=== PATIENT | male | born 1970 | race Caucasian/White ===

== ENCOUNTER 2019-03-31 09:16 | Emergency (ER) | payer OTHER ==
[~2019-03-31] VITALS: Ht 185.4 cm; Wt 102.1 kg
[2019-03-31] MEDS ORDERED: HEARTBURN RELI150 M1 PO (09:24)
[2019-03-31 09:43] LABS: ABSOLUTE EOSINOPHILS 0.1 thou/uL (0.0-0.7); ABSOLUTE LYMPHOCYTES 1.6 thou/uL (0.8-5.3); ABSOLUTE MONOCYTES 0.6 thou/uL (0.0-1.2); ABSOLUTE NEUTROPHILS 3.4 thou/uL (1.6-8.1); BASOPHILS 0.7 %; EOSINOPHILS 1.4 %; HEMATOCRIT 44.5 % (42.0-52.0); HEMOGLOBIN 15.7 gm/dL (14.0-18.0); LYMPHOCYTES 27.6 %; MCH 32.1 pg (26.0-34.0); MCHC 35.4 g/dL (28.0-37.0); MCV 90.7 fL (80.0-100.0); MONOCYTES 10.1 %; MPV 9.6 fl. (7.2-11.1); NUCLEATED RBCS 0 /100WBC; PLATELET COUNT* 199 thou/uL (150-400); POLYS 60.2 %; RBC 4.91 mil/uL (4.50-6.00); RDW-CV 12.2 % (10.5-14.5); WBC 5.7 thou/uL (4.0-11.0)
[2019-03-31 09:55] LABS: APTT 27.6 Seconds (25.0-31.3); INR 1.1; PROTIME 11.7 Seconds (9.20-11.50)
[2019-03-31] MEDS ORDERED: DOXYCYCLINE 10100 M2 PO ×2 (10:21)
[2019-03-31 10:35] VITALS: BP 141/91
== END 2019-03-31 10:35 | disposition home or self-care (01) ==
LOC: M.ERS 09:16
PROVIDERS: Emergency Medicine Emergency Medical Services
DX: R04.0 Epistaxis (principal); K21.9 Gastro-esophageal reflux disease without esophagitis; Z88.0 Allergy status to penicillin

== ENCOUNTER 2019-04-01 17:25 | Emergency (ER) | payer OTHER ==
[~2019-04-01] VITALS: Ht 185.4 cm; Wt 102.1 kg
[~2019-04-01 17:25] MED LIST: DOXYCYCLINE 10100 M2 PO; HEARTBURN RELI150 M1 PO
[2019-04-01 18:35] VITALS: BP 139/88
== END 2019-04-01 18:38 | disposition home or self-care (01) ==
LOC: M.ERS 17:25
DX: R04.0 Epistaxis (principal); K21.9 Gastro-esophageal reflux disease without esophagitis; Z88.0 Allergy status to penicillin

== ENCOUNTER 2020-03-23 05:04 | Emergency (ER) | payer OTHER ==
[~2020-03-23] VITALS: Ht 185.4 cm; Wt 92.5 kg
[2020-03-23] MEDS ORDERED: PREDNISONE50 MG PO (05:40)
[2020-03-23] MEDS ORDERED: SUPER THERAVIT1 EACH PO (05:42)
[2020-03-23] MEDS ORDERED: MAGNESIUM250 M1 PO (05:42)
[2020-03-23 06:32] VITALS: BP 120/67
== END 2020-03-23 06:32 | disposition home or self-care (01) ==
LOC: M.ERS 05:04
DX: L50.9 Urticaria, unspecified (principal); T78.1XXA Other adverse food reactions, not elsewhere classified, initial encounter; K21.9 Gastro-esophageal reflux disease without esophagitis; Z88.0 Allergy status to penicillin; X58.XXXA Exposure to other specified factors, initial encounter